=== PATIENT | male | born 1955 | race Caucasian/White ===

== ENCOUNTER 2020-11-13 08:35 | Emergency (ER) | payer BC ==
[~2020-11-13] VITALS: Ht 167.6 cm; Wt 129.9 kg
--- NOTE | 2020-11-13 09:24 | NUR ---
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
[2020-11-13] MEDS ORDERED: HYDR-3965 PO (09:43)
[2020-11-13] MEDS ORDERED: DICL100G15 TOP (09:43)
[2020-11-13 10:05] VITALS: BP 132/76
== END 2020-11-13 09:50 | disposition home or self-care (01) ==
LOC: ER 08:35
DX: M17.11 Unilateral primary osteoarthritis, right knee (principal); M25.461 Effusion, right knee; M25.561 Pain in right knee; I10 Essential (primary) hypertension; Z79.899 Other long term (current) drug therapy
CPT/HCPCS: 73564; 99284

== ENCOUNTER 2022-10-02 09:40 | Day surgery (SDC) | payer BC ==
[2022-09-25 12:11] LABS: BASOPHILS % (AUTO) 0.5 % (0-1); EOSINOPHILS # (AUTO) 0.2 X10'3 (0-0.9); EOSINOPHILS % (AUTO) 3.3 % (0-6); HEMATOCRIT 44.4 % (42.0-52.0); LYMPHOCYTES # (AUTO) 2.1 X10'3 (1.1-4.8); LYMPHOCYTES % (AUTO) 29.8 % (21-51); MEAN CORPUSCULAR HEMOGLOBIN 29.8 PG (27.0-31.0); MEAN CORPUSCULAR HGB CONC 33.8 g/dL (33.0-36.5); MEAN CORPUSCULAR VOLUME 88.1 FL (78-98); MEAN PLATELET VOLUME 8.6 FL (7.4-10.4); MONOCYTES # (AUTO) 0.7 X10'3 (0-0.9); MONOCYTES % (AUTO) 10.5 % (2-12); NEUTROPHILS # (AUTO) 3.9 X10'3 (1.8-7.7); NEUTROPHILS % (AUTO) 55.9 % (42-75); PLATELET COUNT 200 X10'3 (140-440); RED BLOOD COUNT 5.04 X10'6 (4.70-6.10); RED CELL DISTRIBUTION WIDTH 14.1 % (11.5-14.5)
[2022-09-25 12:22] LABS: APTT 27 SECONDS (22-32)
[2022-09-25 12:24] LABS: ALANINE AMINOTRANSFERASE 28 U/L (12-78); ALBUMIN 3.8 G/DL (3.4-5.0); ALKALINE PHOSPHATASE 89 IU/L (46-116); ANION GAP 6 (8-16); ASPARTATE AMINO TRANSFERASE 19 U/L (10-37); BILIRUBIN,TOTAL 0.3 MG/DL (0.1-1.0); BLOOD UREA NITROGEN 23 MG/DL (7-18); BUN/CREATININE RATIO 24.5 (5.4-32.0); CHLORIDE 104 MMOL/L (99-107); CREATININE 0.94 MG/DL (0.60-1.10); GLUCOSE 94 MG/DL (70-104); POTASSIUM 4.4 MMOL/L (3.5-5.1); SODIUM 139 MMOL/L (135-145); TOTAL CARBON DIOXIDE 28.7 MMOL/L (24-32); TOTAL PROTEIN 7.5 G/DL (6.4-8.2); eGFR 81 ML/MIN
[2022-10-02] VITALS (11 sets, daily range): BP systolic 118–160; BP diastolic 63–95
[~2022-10-02] VITALS: Ht 165.1 cm; Wt 115.2 kg
[~2022-10-02 09:40] MED LIST: DICL100G15 TOP
[2022-10-02] MEDS ORDERED: LORazepam 0.5 MG tablet PO PRN (09:55)
[2022-10-02] MEDS ORDERED: diphenhydrAMINE 25mg capsule PO PRN (09:55)
[2022-10-02] MEDS ORDERED: nitroGLYCERIN 0.4mg SUBLingual tab SL PRN ×2 (09:55→13:45)
[2022-10-02] MEDS ORDERED: normal saline 1,000 ML IV SCH (09:55)
[2022-10-02] MEDS ORDERED: GABA300T25 PO (10:06)
[2022-10-02] MEDS ORDERED: LISI40TA13 PO (10:06)
[2022-10-02] MEDS ORDERED: FINA5TAB11 PO (10:06)
[2022-10-02] MEDS ORDERED: ASPI-611 PO (10:06)
[2022-10-02] MEDS ORDERED: CELE-85 PO (10:06)
[2022-10-02] MEDS ORDERED: MULT-1074 PO (10:06)
[2022-10-02] MEDS ORDERED: METH-798 PO (10:09)
[2022-10-02] MEDS ORDERED: HYDR-3965 PO (10:09)
[2022-10-02] MEDS ORDERED: fentaNYL/PF 50MCG/1 ML 2ML syringe ONE (11:33)
[2022-10-02] MEDS ORDERED: iohexol 350MG/ML 100ml bottle IV ONE (11:34)
[2022-10-02] MEDS ORDERED: iohexol 350 MG/ML 50ML vial IV ONE (11:34)
[2022-10-02] MEDS ORDERED: midazolam 1 mg/ML 2ml injection ONE ×2 (11:34→13:06)
[2022-10-02] MEDS ORDERED: LIDOcaine 1% 30ml preserv. free vial ONE (11:34)
[2022-10-02] MEDS ORDERED: OXAZEpam 15mg capsule PO PRN (13:45)
[2022-10-02] MEDS ORDERED: HYDROcodone/acetaminophen 5mg/325mg tablet PO PRN (13:45)
[2022-10-02] MEDS ORDERED: proCHLORperazine 10 MG/2 ml inj IV PRN (13:45)
[2022-10-02] MEDS ORDERED: HYDROcodone/acetaminophen 10/325mg tab PO PRN (13:45)
[2022-10-02] MEDS ORDERED: ondansetron/PF 4mg/2ml inj IV PRN (13:45)
[2022-10-02] MEDS ORDERED: normal saline 1000ml 1,000 ML IV SCH (13:45)
[2022-10-02] MEDS ORDERED: metoprolol tartrate 25mg tablet PO SCH (20:00)
== END 2022-10-02 19:25 | disposition home or self-care (01) ==
LOC: SSTAY O 09:40
PROVIDERS: ATTEND Internal Medicine Cardiovascular Disease
DX: R94.39 Abnormal result of other cardiovascular function study (principal); I25.10 Atherosclerotic heart disease of native coronary artery without angina pectoris; I10 Essential (primary) hypertension; E66.9 Obesity, unspecified; M19.90 Unspecified osteoarthritis, unspecified site; G89.4 Chronic pain syndrome; E78.5 Hyperlipidemia, unspecified; Z68.41 Body mass index [BMI] 40.0-44.9, adult; Z87.891 Personal history of nicotine dependence; Z89.022 Acquired absence of left finger(s); Z98.890 Other specified postprocedural states; Z96.651 Presence of right artificial knee joint; Z85.828 Personal history of other malignant neoplasm of skin; Z79.82 Long term (current) use of aspirin; Z79.899 Other long term (current) drug therapy
CPT/HCPCS: 36415; 71046; 80053; 85025; 85610; 85730; 93005; 93458; 99152; C1760; C1769; J1644; J2250; J3010; J3490; J7030; Q0163; Q9967; 99153; A6258